=== PATIENT | female | born 1970 | race Caucasian/White ===

== ENCOUNTER 2018-10-03 23:07 | Emergency (ER) | payer OTHER ==
[~2018-10-03] VITALS: Ht 167.6 cm; Wt 72.6 kg
[2018-10-03 23:19] VITALS: BP 124/78
--- NOTE | 2018-10-04 00:24 | NUR ---
LUIS CALLED TO READ AN IMAGE
[2018-10-04] MEDS ORDERED: HYDROCODONE/APAP 5/325MG 1 EACH TABLET ONE (00:29)
[2018-10-04] MEDS ORDERED: HYDROCODONE/APAP 5/325MG 1 EACH TABLET PO ONE (00:30)
== END 2018-10-04 02:32 | disposition home or self-care (01) ==
LOC: ER 23:07
DX: S93.691A Other sprain of right foot, initial encounter (principal); X50.1XXA Overexertion from prolonged static or awkward postures, initial encounter; Y93.89 Activity, other specified; Y92.89 Other specified places as the place of occurrence of the external cause; Y99.8 Other external cause status
CPT/HCPCS: 73610-TC